=== PATIENT | female | born 1940 | race Caucasian/White ===

== ENCOUNTER 2016-11-01 13:13 | Inpatient (IN) | payer MEDICARE, OTHER ==
[~2016-11-01] VITALS: Ht 162.6 cm; Wt 90.3 kg
[2016-11-01] MEDS ORDERED: DUONEB INH ONE ×2 (16:54)
[2016-11-01] MEDS ORDERED: METHYLPRED SOD SUCC 125 MG/2 ML VIAL ONE (17:18)
[2016-11-01] MEDS ORDERED: SALINE FLUSH 10 ML FLUSH PRN (19:50)
[2016-11-01] MEDS ORDERED: NEB-ALBUTEROL 2.5 MG/3 ML INH PRN (19:50)
[2016-11-01] MEDS: SALINE FLUSH 10 ML FLUSH SCH (21:41)
[2016-11-01] MEDS: SODIUM CHLORIDE 0.9% 1,000 ML IV SCH (21:42)
[2016-11-01 21:46] VITALS: Ht 162.6 cm; Wt 90.3 kg
[2016-11-01 21:57] VITALS: BP_SYST 142; RESP 20; TEMP 98.3
[2016-11-01] MEDS: SODIUM CHLORIDE 0.9% FLUSH BAG 500 ML IV SCH (22:23)
[2016-11-01] MEDS: guaiFENesin 200 MG TAB PO SCH (22:26)
[2016-11-01] MEDS: Atorvastatin 20 MG TAB PO SCH (22:26)
[2016-11-01] MEDS: PYRIDOSTIGMINE PO SCH (22:26)
[2016-11-01] MEDS: METHYLPRED SOD SUCC 125 MG/2 ML VIAL IV SCH (23:35)
[2016-11-01 23:42] VITALS: RESP 20
[2016-11-01] MEDS: DUONEB INH SCH (23:42)
[2016-11-02] VITALS (8 sets, daily range): BP systolic 130–147; RESP 16–20; TEMP 98.4–98.7
[2016-11-02] MEDS: LEVOTHYROXINE 0.088 MG TAB PO SCH (06:37)
[2016-11-02] MEDS: SALINE FLUSH 10 ML FLUSH SCH ×2 (08:00→20:00)
[2016-11-02] MEDS: DUONEB INH SCH ×4 (08:10→23:15)
[2016-11-02] MEDS: FLUOXETINE 20 MG CAP PO SCH (08:55)
[2016-11-02] MEDS: FOLIC ACID 1 MG TAB PO SCH (08:55)
[2016-11-02] MEDS: PYRIDOSTIGMINE PO SCH ×2 (08:55→20:12)
[2016-11-02] MEDS: LISINOPRIL 20 MG TAB PO SCH (08:55)
[2016-11-02] MEDS: guaiFENesin 200 MG TAB PO SCH ×3 (08:56→20:12)
[2016-11-02] MEDS: METHYLPRED SOD SUCC 125 MG/2 ML VIAL IV SCH ×2 (08:56→16:12)
[2016-11-02] MEDS: Furosemide 40 MG TAB PO SCH (08:56)
[2016-11-02] MEDS: KCL CR 20 MEQ TAB PO SCH (08:56)
[2016-11-02] MEDS ORDERED: ENOXAPARIN 40 MG/0.4 ML SYR SUBQ SCH (09:00)
[2016-11-02] MEDS: SODIUM CHLORIDE 0.9% 1,000 ML IV SCH ×2 (10:55→22:43)
[2016-11-02] MEDS ORDERED: *PINK BRACELET XX ONE (13:45)
[2016-11-02] MEDS ORDERED: ACETAMINOPHEN 325 MG TAB PO PRN (14:35)
[2016-11-02] MEDS: [UNRECOGNIZED DRUG - OTHER] XX SCH (20:00)
[2016-11-02] MEDS ORDERED: MISSING DOSE XX ONE (20:15)
[2016-11-02] MEDS: Atorvastatin 20 MG TAB PO SCH (20:26)
[2016-11-02] MEDS: GUAIFEN/DM 10 ML UDC PO PRN (22:43)
[2016-11-02] MEDS: SODIUM CHLORIDE 0.9% FLUSH BAG 500 ML IV SCH (23:41)
[2016-11-03] VITALS (7 sets, daily range): BP systolic 125–163; RESP 18–20; TEMP 97.8–98.4
[2016-11-03] MEDS: METHYLPRED SOD SUCC 125 MG/2 ML VIAL IV SCH ×2 (00:06→08:17)
[2016-11-03] MEDS ORDERED: LOPERAMIDE 2 MG CAPSULE PO PRN (02:35)
[2016-11-03] MEDS: SALINE FLUSH 10 ML FLUSH SCH ×2 (05:56→20:57)
[2016-11-03] MEDS: GUAIFEN/DM 10 ML UDC PO PRN ×2 (06:23→15:04)
[2016-11-03] MEDS: LEVOTHYROXINE 0.088 MG TAB PO SCH (06:23)
[2016-11-03] MEDS: [UNRECOGNIZED DRUG - OTHER] XX SCH ×2 (07:29→20:00)
[2016-11-03] MEDS: DUONEB INH SCH ×4 (07:31→23:51)
[2016-11-03] MEDS: FOLIC ACID 1 MG TAB PO SCH (08:17)
[2016-11-03] MEDS: LISINOPRIL 20 MG TAB PO SCH (08:18)
[2016-11-03] MEDS: PYRIDOSTIGMINE PO SCH ×2 (08:18→20:57)
[2016-11-03] MEDS: Furosemide 40 MG TAB PO SCH (08:18)
[2016-11-03] MEDS: FLUOXETINE 20 MG CAP PO SCH (08:18)
[2016-11-03] MEDS: guaiFENesin 200 MG TAB PO SCH ×3 (08:18→20:58)
[2016-11-03] MEDS: KCL CR 20 MEQ TAB PO SCH (08:18)
[2016-11-03] MEDS: SODIUM CHLORIDE 0.9% 1,000 ML IV SCH (14:03)
[2016-11-03] MEDS ORDERED: AZITHROMYCIN 250 MG TAB PO ONE (15:45)
[2016-11-03] MEDS: NEB-BUDESONIDE 0.5 MG INH SCH (19:09)
[2016-11-03] MEDS: Atorvastatin 20 MG TAB PO SCH (20:58)
[2016-11-03] MEDS ORDERED: TRAZODONE 50 MG TAB PO SCH (21:00)
[2016-11-04 03:32] VITALS: BP_SYST 123; RESP 20; TEMP 97.8
[2016-11-04] MEDS: SODIUM CHLORIDE 0.9% FLUSH BAG 500 ML IV SCH (06:00)
[2016-11-04] MEDS: LEVOTHYROXINE 0.088 MG TAB PO SCH (06:41)
[2016-11-04 07:31] VITALS: BP_SYST 129; RESP 18; TEMP 98.2
[2016-11-04] MEDS: DUONEB INH SCH ×2 (07:31→15:41)
[2016-11-04] MEDS: NEB-BUDESONIDE 0.5 MG INH SCH (07:31)
[2016-11-04] MEDS: [UNRECOGNIZED DRUG - OTHER] XX SCH ×2 (08:00→18:12)
[2016-11-04] MEDS: FOLIC ACID 1 MG TAB PO SCH (08:45)
[2016-11-04] MEDS: FLUOXETINE 20 MG CAP PO SCH (08:45)
[2016-11-04] MEDS: LISINOPRIL 20 MG TAB PO SCH (08:45)
[2016-11-04] MEDS: Furosemide 40 MG TAB PO SCH (08:45)
[2016-11-04] MEDS: PYRIDOSTIGMINE PO SCH (08:45)
[2016-11-04] MEDS: KCL CR 20 MEQ TAB PO SCH (08:45)
[2016-11-04] MEDS: SALINE FLUSH 10 ML FLUSH SCH (08:45)
[2016-11-04] MEDS: guaiFENesin 200 MG TAB PO SCH ×2 (08:45→16:44)
[2016-11-04] MEDS ORDERED: PREDNISONE 20 MG TAB PO SCH (09:00)
[2016-11-04] MEDS ORDERED: AZITHROMYCIN 250 MG TAB PO SCH (09:00)
[2016-11-04 11:14] VITALS: BP_SYST 117; RESP 18; TEMP 98.4
[2016-11-04 15:22] VITALS: BP_SYST 138; RESP 18; TEMP 98.8
[2016-11-04 17:49] VITALS: BP_SYST 118; RESP 18; TEMP 98.6
== END 2016-11-04 18:29 | disposition home or self-care (01) | DRG 189 ==
LOC: ENRESERVDT → ENRESERVTM → ER 13:13 → EMR 19:48 → 3NT 21:36 → ENPENDDIS 11-02 19:09 → OBSVTOIN 11-02 19:09
PROVIDERS: ADMIT Family Medicine; ATTEND Family Medicine
CPT/HCPCS: 71020; 71250; 80048; 83735; 85025; 85610; 93005; 93306; 94640; 94799; 96374; 99223; 99232

== ENCOUNTER 2016-11-08 19:21 | Emergency (ER) | payer MEDICARE, OTHER | END 2016-11-08 22:12 | disposition home or self-care (01) | LOC: ER 19:21 | DX: S09.90XA Unspecified injury of head, initial encounter (principal); W22.8XXA Striking against or struck by other objects, initial encounter; Z79.01 Long term (current) use of anticoagulants | CPT/HCPCS: 36415; 70450; 72125; 80053; 85025; 85610; 85730 ==